=== PATIENT | male | born 1990 | race Caucasian/White ===

== ENCOUNTER 2018-02-03 18:09 | Emergency (ER) | payer SELFPAY ==
[~2018-02-03] VITALS: Ht 162.6 cm; Wt 70.0 kg
[2018-02-03] MEDS ORDERED: IBUPROFEN 600MG TABLET PO ONE (19:00)
[2018-02-03 20:55] VITALS: BP 122/75
== END 2018-02-03 20:57 | disposition home or self-care (01) ==
LOC: ER 18:34
DX: S90.02XA Contusion of left ankle, initial encounter (principal); S90.32XA Contusion of left foot, initial encounter; F41.9 Anxiety disorder, unspecified; J45.909 Unspecified asthma, uncomplicated; F17.200 Nicotine dependence, unspecified, uncomplicated; V89.2XXA Person injured in unspecified motor-vehicle accident, traffic, initial encounter; Y93.89 Activity, other specified; Y99.8 Other external cause status; Y92.410 Unspecified street and highway as the place of occurrence of the external cause
CPT/HCPCS: 73610; 73630; 99284